=== PATIENT | female | born 1970 | race African-American/Black ===

== ENCOUNTER 2022-04-19 10:42 | Outpatient (CLI) | payer BC | END 2022-04-19 10:43 | disposition home or self-care (01) | LOC: BICULT 10:42 | PROVIDERS: ATTEND Internal Medicine Gastroenterology | DX: R10.9 Unspecified abdominal pain (principal); R11.0 Nausea; K21.9 Gastro-esophageal reflux disease without esophagitis; K58.1 Irritable bowel syndrome with constipation; Z86.19 Personal history of other infectious and parasitic diseases | CPT/HCPCS: 76705 ==

== ENCOUNTER 2022-05-25 08:45 | Outpatient (CLI) | payer BC ==
[2022-05-25] MEDS ORDERED: Iopamidol 370 76% 100 ML VIAL ONE (14:10)
== END 2022-05-25 08:46 | disposition home or self-care (01) ==
LOC: CT 08:45
PROVIDERS: ATTEND Internal Medicine Gastroenterology
DX: R10.9 Unspecified abdominal pain (principal); K21.9 Gastro-esophageal reflux disease without esophagitis; K58.1 Irritable bowel syndrome with constipation; R11.0 Nausea; R93.89 Abnormal findings on diagnostic imaging of other specified body structures; Z86.19 Personal history of other infectious and parasitic diseases
CPT/HCPCS: 74170; 78227; A9537; Q9967

== ENCOUNTER 2025-04-07 11:02 | Outpatient (CLI) | payer BC | END 2025-04-07 11:03 | disposition home or self-care (01) | LOC: ULT 11:02 | PROVIDERS: ATTEND Internal Medicine Gastroenterology | DX: K21.9 Gastro-esophageal reflux disease without esophagitis (principal); R10.13 Epigastric pain; R11.0 Nausea; K76.0 Fatty (change of) liver, not elsewhere classified | CPT/HCPCS: 76705 ==